=== PATIENT | male | born 1960 | race Asian ===

== ENCOUNTER 2019-10-15 14:36 | Emergency (ER) | payer BC ==
[~2019-10-15] VITALS: Ht 167.6 cm; Wt 75.7 kg
[2019-10-15 14:42] VITALS: BP_SYST 124
--- NOTE | 2019-10-15 14:46 | NUR ---
AMBULATED TO BED 8
--- NOTE | 2019-10-15 14:50 | NUR ---
PATIENT MOVED TO ROOM 8, AMBULATORY WITH STEADY GAIT.
[2019-10-15] MEDS ORDERED: PREDNISONE 20 MG TABLET PO ONE (15:00)
[2019-10-15] MEDS ORDERED: IPRATROPIUM BROM 0.5 MG/2.5 ML VIAL.NEB (ATROVENT) INH ONE (15:00)
[2019-10-15] MEDS ORDERED: ALBUTEROL SULFATE 0.083% 2.5 MG/3 ML VIAL.NEB INH ONE (15:00)
--- NOTE | 2019-10-15 15:00 | NUR ---
PATIENT ARRIVED VIA POV, AAOX4, AND AMBULATORY WITH STEADY GAIT. PATIENT C/C OF SOB, PATIENT STATES HE HAS A HISTORY OF ASTHMA, HAS NOT BEEN ABLE TO SEE MD SINCE PRIOR TO COVID SITUATION. PATIETN STATES HE HAS PRODUCTIVE COUGH WITH WHITE SPUTUM, NO SORE THROAT, HEADACHE, SWEATS, CHILLS, FEVER, OR CHEST PAIN. PATIENT STATES HE IS A NON SMOKER AND ONLY TAKES METFORMIN. PATIENT ABLE TO SPEAK IN FULL SENTENCES WITH NO ACUTE DISTRESS. PATIENT STATES HE IS OUT OF HIS INHALER WELL.
--- NOTE | 2019-10-15 15:01 | NUR ---
ER at bedside examining patient.
[2019-10-15 15:35] VITALS: BP_SYST 124
--- NOTE | 2019-10-15 15:35 | NUR ---
Patient given written and verbal discharge instructions and verbalizes understanding. ER MD discussed with patient the results and treatment provided. Patient in stable condition. ID arm band removed. Rx of ALBUTEROL INHALER, PREDNISON, ZITHROMAX given. Patient educated on pain management and to follow up with PMD. Pain Scale 0/10. Opportunity for questions provided and answered. Medication side effect fact sheet provided.
== END 2019-10-15 15:35 | disposition home or self-care (01) ==
LOC: SED 14:36
DX: J45.901 Unspecified asthma with (acute) exacerbation (principal); E11.9 Type 2 diabetes mellitus without complications
CPT/HCPCS: 94640; 99283; J7512; J7613

== ENCOUNTER 2020-11-15 14:05 | Emergency (ER) | payer BC ==
[~2020-11-15] VITALS: Ht 167.6 cm; Wt 72.1 kg
[2020-11-15 14:14] VITALS: BP_SYST 145
[2020-11-15] MEDS ORDERED: ALBUTEROL SULFATE 0.083% 2.5 MG/3 ML VIAL.NEB INH ONE (14:45)
[2020-11-15] MEDS ORDERED: IPRATROPIUM BROM 0.5 MG/2.5 ML VIAL.NEB (ATROVENT) INH ONE (14:45)
[2020-11-15] MEDS ORDERED: PRED20TA PO (15:16)
[2020-11-15] MEDS ORDERED: ALBMDI INH (15:16)
[2020-11-15 15:25] VITALS: BP_SYST 142
== END 2020-11-15 15:30 | disposition home or self-care (01) ==
LOC: SED 14:05
DX: J45.909 Unspecified asthma, uncomplicated (principal); E11.9 Type 2 diabetes mellitus without complications
CPT/HCPCS: 94640; 99283; J7613